=== PATIENT | male | born 1970 | race Hispanic/Latino ===

== ENCOUNTER 2017-08-02 07:57 | Emergency (ER) | payer BC, SELFPAY ==
[~2017-08-02 07:57] MED LIST: ADENOSINE 6 MG/ 2ML VIAL IV ONE
[2017-08-02] MEDS ORDERED: NA CHLORIDE 0.9% 1,000 ML ONE (08:01)
[2017-08-02] MEDS ORDERED: ADENOSINE 6 MG/ 2ML VIAL IV ONE (08:01)
[2017-08-02] MEDS ORDERED: METOPROLOL TAR 50 MG TAB ONE (08:14)
[2017-08-02 08:29] LABS: Potassium 4.6 mEq/L (3.6-5.0)
[2017-08-02 08:35] LABS: Albumin 4.4 g/dL (3.2-5.5); Bilirubin Direct 0.1 mg/dL (0-0.2); Bilirubin Total 0.4 mg/dL (0.3-1.2); Magnesium 2.1 mg/dL (1.8-2.5); Protein, Total 7.5 g/dL (6.0-8.3)
--- NOTE | 2017-08-02 08:41 | RAD REPORT ---
EXAM DESCRIPTION: RAD - Chest Single View - 08/02/2017 8:27 am CLINICAL HISTORY: Chest pain, shortness of breath, tachycardia COMPARISON: None. TECHNIQUE: AP portable chest image was obtained 0818 hours . FINDINGS: Lungs are clear. Heart and vasculature are normal. No measurable pleural effusion and no p neumothorax. No gross bony abnormality seen. No acute aortic finding. Resuscitation paddles are in pl [address]. IMPRESSION: No acute cardiopulmonary process.
[2017-08-02 08:51] LABS: CKMB Creatine Kinase MB 1.8 ng/ml (0.3-4.0)
--- NOTE | 2017-08-02 09:14 | ER ---
Nurse's Notes [facility] Name: Dean Powers Age: 46 yrs Sex: Male : 1970 Arrival Date: 08/02/2017 Time: 08:01 Bed 3 Private MD: Diagnosis: Supraventricular tachycardia Presentation: 08/02 08:01 Presenting complaint: EMS states: Chest pain and SOB that started this morning while in hb shower, HR 160-180s, BP 100/60, pain 3/810. Pain does not radiate. Denies cardiac hx. Transition of care: patient was not received from another setting of care. Onset of symptoms was August 02, 2017. Initial Sepsis Screen: Does the patient meet any 2 criteria? No. Patient's initial sepsis screen is negative. Does the patient have a suspected source of infection? No. Patient's initial sepsis screen is negative. Care prior to arrival: Medication(s) given: ASA, 325 mg, x 1. 08:01 Method Of Arrival: EMS: [facility] 08:01 Acuity: SUZAN 2 hb Historical: - Allergies: 08:08 No Known Allergies; hb - Home Meds: 08:08 None [Active]; hb - PMHx: 08:08 None; hb - PSHx: 08:08 None; hb - Immunization history:: Adult Immunizations up to date. - Social history:: Smoking status: Patient/guardian denies using tobacco. Screenin:09 Abuse screen: Denies threats or abuse. Denies injuries from another. Nutritional hb screening: No deficits noted. Tuberculosis screening: No symptoms or risk factors identified. Fall Risk None identified. Assessment: 08:09 General: Appears in no apparent distress. Behavior is calm, cooperative. Pain: Denies hb pain. Neuro: Level of Consciousness is awake, alert, obeys commands, Oriented to person, place, time, situation. Cardiovascular: Heart tones S1 S2 present Capillary refill < 3 seconds Patient's skin is warm and dry. Respiratory: Airway is patent Trachea midline Respiratory effort is even, unlabored, Respiratory pattern is regular, symmetrical, Breath sounds are clear bilaterally. GI: No signs and/or symptoms were reported involving the gastrointestinal system. : No signs and/or symptoms were reported regarding the genitourinary system. EENT: No signs and/or symptoms were reported regarding the EENT system. Derm: No signs and/or symptoms reported regarding the dermatologic system. Skin is intact, is healthy with good turgor, Skin is pink, warm \T\ dry. Musculoskeletal: No signs and/or symptoms reported regarding the musculoskeletal system. 08:17 Reassessment: xray at bedside. Vital Signs: 08:03 Pulse 164; Resp 17; Pulse Ox 95% on R/A; Pain 2/10; hb 08:03 BP 110 / 83; sg 08:06 BP 110 / 83; Pulse 84; Resp 15; Pulse Ox 100% on R/A; Pain 0/10; hb 08:13 BP 128 / 98; Pulse 88 MON; Resp 17 S; Pulse Ox 97% on 3 lpm NC; Pain 0/10; sg 08:17 Temp 98.1(O); sg 08:17 Weight 113.4 kg (R); sg 08:50 BP 115 / 80; Pulse 73; Resp 15; Pulse Ox 100% on R/A; Pain 0/10; hb 10:30 BP 118 / 70; Pulse 107; Resp 22; Pulse Ox 94% on R/A; hb Vitals: 08:03 Cardiac Rhythm Assessment SVT. sg 08:17 Cardiac Rhythm Assessment Sinus rhythm. ED Course: 08:00 Initial lab(s) drawn, by me, sent to lab. Missed attempt(s): 20 gauge in left sg antecubital area. Bleeding controlled, band aid applied, catheter tip intact. 08:01 Patient arrived in ED. bella 08:01 Mann Hall MD is Attending Physician. bella 08:01 Caitlin Villarreal, RN is Primary Nurse. hb 08:03 Triage completed. hb 08:05 Patient has correct armband on for positive identification. Placed in gown. Bed in low hb position. Call light in reach. Side rails up X 1. fire captain on. Pulse ox on. NIBP on. 08:05 Inserted saline lock: 20 gauge in right antecubital area, using aseptic technique. hb Blood collected. 08:08 Arm band placed on right wrist. hb 08:27 XRAY Chest (1 view) In Process Unspecified. EDMS 09:13 Jose J Aguiar MD is Referral Physician. bella 09:24 Awaiting: lab results prior to DC to home. sg 10:34 EKG done, by pipe testing technician. reviewed by Mann Hall MD. dt2 Administered Medications: 08:05 Drug: NS 0.9% 1000 ml Route: IV; Rate: 1 bolus; Site: right antecubital; hb 09:15 Follow up: Response: No adverse reaction; IV Status: Completed infusion hb 08:05 Drug: Adenocard 6 mg Route: IVP; Site: right antecubital; hb 09:15 Follow up: Response: No adverse reaction hb 08:16 Drug: Lopressor (metoprolol TARTRATE) 50 mg Route: PO; hb 09:16 Follow up: Response: No adverse reaction hb Outcome: 09:13 Discharge ordered by MD. blanco 10:51 Patient left the ED. hb Signatures: Dispatcher [employer] EDMS David Weller RN Mann Dunn MD MD cha Baxter, Heather, RN RN China Lambert dt2 Corrections: (The following items were deleted from the chart) 08:51 08:01 Care prior to arrival: None. hb hb
--- NOTE | 2017-08-02 09:14 | EDPHYS ---
Physician Documentation [facility] Name: Dean Powers Age: 46 yrs Sex: Male : 1970 Arrival Date: 08/02/2017 Time: 08:01 Bed 3 Private MD: ED Physician Mann Hall HPI: 08/02 08:11 This 46 yrs old Male presents to ER via EMS with complaints of Chest Pain, bella Tachycardia. 08:11 The patient or guardian reports chest pain that is located primarily in the substernal bella area. Onset: this morning, today. The pain does not radiate. Associated signs and symptoms: The patient has no apparent associated signs or symptoms. The chest pain is described as a pressure. Duration: The patient or guardian reports a single episode, that is still ongoing. Severity of pain: At its worst the pain was mild in the emergency department the pain is unchanged. Historical: - Allergies: 08:08 No Known Allergies; hb - Home Meds: 08:08 None [Active]; hb - PMHx: 08:08 None; hb - PSHx: 08:08 None; hb - Immunization history:: Adult Immunizations up to date. - Social history:: Smoking status: Patient/guardian denies using tobacco. ROS: 08:12 Constitutional: Negative for fever, chills, and weight loss, Eyes: Negative for injury, bella pain, redness, and discharge, ENT: Negative for injury, pain, and discharge, Neck: Negative for injury, pain, and swelling, Respiratory: Negative for shortness of breath, cough, wheezing, and pleuritic chest pain, Abdomen/GI: Negative for abdominal pain, nausea, vomiting, diarrhea, and constipation, Back: Negative for injury and pain, : Negative for injury, bleeding, discharge, and swelling, MS/Extremity: Negative for injury and deformity, Skin: Negative for injury, rash, and discoloration, Neuro: Negative for headache, weakness, numbness, tingling, and seizure, Psych: Negative for depression, anxiety, suicide ideation, homicidal ideation, and hallucinations, Allergy/Immunology: Negative for hives, rash, and allergies, Endocrine: Negative for neck swelling, polydipsia, polyuria, polyphagia, and marked weight changes, Hematologic/Lymphatic: Negative for swollen nodes, abnormal bleeding, and unusual bruising. 08:12 Cardiovascular: Positive for chest pain, palpitations. Exam: 08:12 Constitutional: This is a well developed, well nourished patient who is awake, alert, bella and in no acute distress. Head/Face: Normocephalic, atraumatic. Eyes: Pupils equal round and reactive to light, extra-ocular motions intact. Lids and lashes normal. Conjunctiva and sclera are non-icteric and not injected. Cornea within normal limits. Periorbital areas with no swelling, redness, or edema. ENT: Nares patent. No nasal discharge, no septal abnormalities noted. Tympanic membranes are normal and external auditory canals are clear. Oropharynx with no redness, swelling, or masses, exudates, or evidence of obstruction, uvula midline. Mucous membranes moist. Neck: Trachea midline, no thyromegaly or masses palpated, and no cervical lymphadenopathy. Supple, full range of motion without nuchal rigidity, or vertebral point tenderness. No Meningismus. Chest/axilla: Normal chest wall appearance and motion. Nontender with no deformity. No lesions are appreciated. Respiratory: Lungs have equal breath sounds bilaterally, clear to auscultation and percussion. No rales, rhonchi or wheezes noted. No increased work of breathing, no retractions or nasal flaring. Abdomen/GI: Soft, non-tender, with normal bowel sounds. No distension or tympany. No guarding or rebound. No evidence of tenderness throughout. Back: No spinal tenderness. No costovertebral tenderness. Full range of motion. Male : Normal genitalia with no discharge or lesions. Skin: Warm, dry with normal turgor. Normal color with no rashes, no lesions, and no evidence of cellulitis. MS/ Extremity: Pulses equal, no cyanosis. Neurovascular intact. Full, normal range of motion. Neuro: Awake and alert, GCS 15, oriented to person, place, time, and situation. Cranial nerves II-XII grossly intact. Motor strength 5/5 in all extremities. Sensory grossly intact. Cerebellar exam normal. Normal gait. Psych: Awake, alert, with orientation to person, place and time. Behavior, mood, and affect are within normal limits. 08:12 ECG was reviewed by the Attending Physician. Vital Signs: 08:03 Pulse 164; Resp 17; Pulse Ox 95% on R/A; Pain 2/10; hb 08:03 BP 110 / 83; sg 08:06 BP 110 / 83; Pulse 84; Resp 15; Pulse Ox 100% on R/A; Pain 0/10; hb 08:13 BP 128 / 98; Pulse 88 MON; Resp 17 S; Pulse Ox 97% on 3 lpm NC; Pain 0/10; sg 08:17 Temp 98.1(O); sg 08:17 Weight 113.4 kg (R); sg 08:50 BP 115 / 80; Pulse 73; Resp 15; Pulse Ox 100% on R/A; Pain 0/10; hb 10:30 BP 118 / 70; Pulse 107; Resp 22; Pulse Ox 94% on R/A; hb MDM: 08:01 Patient medically screened. [facility] 08:23 Data reviewed: vital signs, nurses notes, lab test result(s), EKG, radiologic studies, bella plain films. 08/02 08:03 Order name: Basic Metabolic Panel [facility] 08/02 08:03 Order name: BNP; Complete Time: 09:13 [facility] 08/02 08:03 Order name: CBC with Diff [facility] 08/02 08:03 Order name: Ckmb [facility] 08/02 08:03 Order name: CPK [facility] 08/02 08:03 Order name: LFT's [facility] 08/02 08:03 Order name: Magnesium [facility] 08/02 08:03 Order name: PT-INR [facility] 08/02 08:03 Order name: Ptt, Activated [facility] 08/02 08:03 Order name: Troponin (emerg Dept Use Only); Complete Time: 09:13 [facility] 08/02 08:03 Order name: XRAY Chest (1 view); Complete Time: 09:13 [facility] 08/02 08:03 Order name: TSH [facility] 08/02 10:35 Order name: Urine Dipstick--Ancillary (enter results) 08/02 08:03 Order name: EKG; Complete Time: 08:04 [facility] 08/02 08:03 Order name: Cardiac monitoring; Complete Time: 08:11 [facility] 08/02 08:03 Order name: EKG - Nurse/Tech; Complete Time: 08:11 [facility] 08/02 08:03 Order name: IV Saline Lock; Complete Time: 08:11 [facility] 08/02 08:03 Order name: Labs collected and sent; Complete Time: 08:11 [facility] 08/02 08:03 Order name: O2 Per Protocol; Complete Time: 08:11 [facility] 08/02 08:03 Order name: O2 Sat Monitoring; Complete Time: 08:11 [facility] 08/02 08:10 Order name: EKG; Complete Time: 08:11 [facility] 08/02 08:10 Order name: EKG - Nurse/Tech; Complete Time: 08:10 [facility] 08/02 08:47 Order name: Labs - recollect needed; Complete Time: 10:33 bd Administered Medications: 08:05 Drug: NS 0.9% 1000 ml Route: IV; Rate: 1 bolus; Site: right antecubital; hb 09:15 Follow up: Response: No adverse reaction; IV Status: Completed infusion hb 08:05 Drug: Adenocard 6 mg Route: IVP; Site: right antecubital; hb 09:15 Follow up: Response: No adverse reaction hb 08:16 Drug: Lopressor (metoprolol TARTRATE) 50 mg Route: PO; hb 09:16 Follow up: Response: No adverse reaction hb Disposition: 08/02/17 09:13 Discharged to Home. Impression: Supraventricular tachycardia. - Condition is Stable. - Discharge Instructions: Nonspecific Chest Pain, Paroxysmal Supraventricular Tachycardia, Nonspecific Chest Pain, [id number], Aspirin and Your Heart. - Prescriptions for Toprol XL 50 mg Oral Tablet - take 1 tablet by ORAL route once daily; 20 tablet. - Medication Reconciliation Form, Thank You Letter, Antibiotic Education, Prescription Opioid Use form. - Follow up: Private Physician; When: 2 - 3 days; Reason: Recheck today's complaints, Continuance of care, Re-evaluation by your physician. Follow up: Jose J Aguiar; When: 2 - 3 days; Reason: Recheck today's complaints, Re-evaluation by your physician. - Problem is new. - Symptoms have improved. Signatures: Dispatcher [employer] EDMS Viki Gan Corey, MD MD cha Baxter, Heather, RN RN Corrections: (The following items were deleted from the chart) 10:51 09:13 08/02/2017 09:13 Discharged to Home. Impression: Supraventricular tachycardia. hb Condition is Stable. Discharge Instructions: Nonspecific Chest Pain, Paroxysmal Supraventricular Tachycardia, Nonspecific Chest Pain, [id number], Aspirin and Your Heart. Prescriptions for Toprol XL 50 mg Oral Tablet - take 1 tablet by ORAL route once daily; 20 tablet. and Forms are Medication Reconciliation Form, Thank You Letter, Antibiotic Education, Prescription Opioid Use. Follow up: Private Physician; When: 2 - 3 days; Reason: Recheck today's complaints, Continuance of care, Re-evaluation by your physician. Follow up: Jose J Aguiar; When: 2 - 3 days; Reason: Recheck today's complaints, Re-evaluation by your physician. Problem is new. Symptoms have improved. bella
[2017-08-02 09:22] LABS: Thyroid Stimulating Hormone 1.61 uIU/mL (0.34-5.60)
[2017-08-02 09:49] LABS: Hematocrit 46.9 % (39.6-49.0); RBC Red Blood Cell Count 5.31 M/uL (4.33-5.43)
[2017-08-02 09:50] LABS: MCH 29.4 pg (27.0-35.0); MCV 88.3 fL (80-100); MPV 9.8 fL (7.6-11.3)
[2017-08-02 09:51] LABS: Absolute Neutrophil 8.2 K/uL (1.8-8.0); Basophils % 0.4 % (0-1.3); Eosinophils % 0.5 % (0-4.4); Lymphocytes % 14.5 % (15.3-44.8); Monocytes % 7.5 % (3.3-12.3)
[2017-08-02 09:52] LABS: Absolute Lymphocytes (CBC) 1.5 K/uL (0.7-4.9); Absolute Monocytes 0.8 K/uL (0.1-1.3)
[2017-08-02 10:21] LABS: Protime INR 0.97
[2017-08-02 11:23] LABS: Urine Blood NEGATIVE (NEG); Urine Glucose NEGATIVE (NEG); Urine Protein NEGATIVE (NEG); Urine pH 6.5 (5.0-7.0)
--- NOTE | 2017-08-03 10:33 | EKG ---
Test Date: 2017-08-02 Test Time: 08:08:21 Vegetable Inspector: SWG MEASUREMENT RESULTS: Intervals: Rate: 87 [place]: 164 QRSD: 84 QT: 358 QTc: 430 [place]: P: 65 [place]: 164 QRS: -39 T: 20 INTERPRETIVE STATEMENTS: Normal sinus rhythm Left axis deviation Abnormal ECG Compared to ECG 08/02/2017 07:53:02 Left-axis deviation now present Supraventricular tachycardia no longer present Right-axis deviation no longer present ST (T wave) deviation no longer present Electronically Signed On 08-03-17 10:27:43 CDT by Jose J Aguiar
--- NOTE | 2017-08-03 10:33 | EKG ---
Test Date: 2017-08-02 Test Time: 07:53:02 Securities Counselor: SWG MEASUREMENT RESULTS: Intervals: Rate: 162 [place]: QRSD: 76 QT: 282 QTc: 462 [place]: P: [place]: QRS: 155 T: 12 INTERPRETIVE STATEMENTS: Supraventricular tachycardia Right axis deviation Nonspecific ST abnormality Abnormal ECG No previous ECG available for comparison Electronically Signed On 08-03-17 10:27:44 CDT by Jose J Aguiar
== END 2017-08-02 10:51 | disposition home or self-care (01) ==
LOC: ER 07:57
DX: I47.1 Supraventricular tachycardia (principal)
CPT/HCPCS: 36415; 71045; 80048; 80076; 81003; 82550; 82553; 83735; 83880; 84443; 84484; 85025; 85610; 85730; 93005; 96361; 96374; 99285; J0153; J7030